=== PATIENT | male | born 1965 | race Caucasian/White ===

== ENCOUNTER 2017-11-06 09:45 | Day surgery (SDC) | payer OTHER ==
[2017-11-06] MEDS ORDERED: FENTAnyl 50 MCG/ML VIAL (12:03)
[2017-11-06] MEDS ORDERED: MIDAZOLAM 1 MG/ML 2 ML INJ (12:04)
== END 2017-11-06 13:05 | disposition home or self-care (01) ==
LOC: GIL 09:45
DX: Z12.11 Encounter for screening for malignant neoplasm of colon (principal); K64.8 Other hemorrhoids; I10 Essential (primary) hypertension; E11.9 Type 2 diabetes mellitus without complications
CPT/HCPCS: 45378; 82962